=== PATIENT | male | born 1995 | race Caucasian/White ===

== ENCOUNTER 2021-02-04 13:58 | Outpatient (CLI) | payer BC, SELFPAY | END 2021-02-04 13:59 | disposition home or self-care (01) | LOC: ANHCOVIDVC 13:58 | DX: Z23 Encounter for immunization (principal) | CPT/HCPCS: 0001A; 91300 ==

== ENCOUNTER 2021-02-25 14:00 | Outpatient (CLI) | payer BC, SELFPAY | END 2021-02-25 14:01 | disposition home or self-care (01) | LOC: ANHCOVIDVC 14:00 | DX: Z23 Encounter for immunization (principal) | CPT/HCPCS: 0002A; 91300 ==